=== PATIENT | female | born 1960 | race Caucasian/White ===

== ENCOUNTER 2021-05-11 06:26 | Day surgery (SDC) | payer OTHER, MEDICAID, SELFPAY ==
[~2021-05-11] VITALS: Ht 167.6 cm; Wt 81.6 kg
[2021-05-11] MEDS ORDERED: SIMETHICONE 40 MG/0.6 ML ML ONE (07:11)
[2021-05-11] MEDS ORDERED: MIDAZOLAM HCL 5 MG/5 ML VIAL ONE (07:12)
[2021-05-11] MEDS ORDERED: fentaNYL CITRATE/PF 100 MCG/2 ML AMP ONE (07:12)
[2021-05-11 13:12] VITALS: BP_SYST 139
== END 2021-05-11 09:50 | disposition home or self-care (01) ==
LOC: SDS 06:26 → SMU 06:28 → SDS 09:50
PROVIDERS: ATTEND Internal Medicine
DX: Z12.11 Encounter for screening for malignant neoplasm of colon (principal); K57.30 Diverticulosis of large intestine without perforation or abscess without bleeding; R19.8 Other specified symptoms and signs involving the digestive system and abdomen; E11.9 Type 2 diabetes mellitus without complications; E78.5 Hyperlipidemia, unspecified; K21.9 Gastro-esophageal reflux disease without esophagitis; Z79.899 Other long term (current) drug therapy
CPT/HCPCS: 36415; 43239; 45378; 82962; 87081; 88305; 88312; 88313; 99152; 99153; G0378; J2250; J3010; U0003